=== PATIENT | female | born 2000 ===

== ENCOUNTER 2022-03-13 16:12 | Outpatient (CLI) | payer OTHER | END 2022-03-13 17:13 | disposition home or self-care (01) | LOC: PRENATAL 16:12 | PROVIDERS: ATTEND Obstetrics & Gynecology Maternal & Fetal Medicine | DX: O35.9XX0 Maternal care for (suspected) fetal abnormality and damage, unspecified, not applicable or unspecified (principal); O35.3XX0 Maternal care for (suspected) damage to fetus from viral disease in mother, not applicable or unspecified; Z3A.20 20 weeks gestation of pregnancy ==

== ENCOUNTER 2022-07-29 21:00 | Inpatient (IN) | payer OTHER ==
[~2022-07-29] VITALS: Ht 162.6 cm; Wt 60.3 kg
[2022-07-29] MEDS ORDERED: PRENATAL TABLE1 EAC4 PO (21:50)
== END 2022-08-02 14:30 | disposition home or self-care (01) | DRG 807 ==
LOC: LDR 21:00 → OB/GYN 07-31 13:26
PROVIDERS: ADMIT Obstetrics & Gynecology; ATTEND Obstetrics & Gynecology
PROC: 4A1HXCZ Monitoring of Products of Conception, Cardiac Rate, External Approach (ICD-10-PCS; 2022-07-29)
PROC: 3E033VJ Introduction of Other Hormone into Peripheral Vein, Percutaneous Approach (ICD-10-PCS; 2022-07-30)
PROC: 3E0P7VZ Introduction of Hormone into Female Reproductive, Via Natural or Artificial Opening (ICD-10-PCS; 2022-07-30)
PROC: 10E0XZZ Delivery of Products of Conception, External Approach (ICD-10-PCS; principal; 2022-07-31)
PROC: 0W8NXZZ Division of Female Perineum, External Approach (ICD-10-PCS; 2022-07-31)
DX: O80 Encounter for full-term uncomplicated delivery (principal); Z37.0 Single live birth; Z3A.40 40 weeks gestation of pregnancy; Z20.822 Contact with and (suspected) exposure to COVID-19